=== PATIENT | female | born 1940 | race Caucasian/White ===

== ENCOUNTER 2021-04-04 14:38 | Inpatient (IN) | payer MEDICARE, OTHER ==
[~2021-04-04] VITALS: Ht 165.1 cm; Wt 64.0 kg
[2021-04-04] MEDS ORDERED: ONDANSETRON HCL 4 MG/2 ML VIAL IV ONE (22:30)
[2021-04-04] MEDS ORDERED: MORPHINE SULFATE 4 MG/ML SYR/VIAL IV ONE (22:30)
[2021-04-04 22:54] LABS: Basophils # (auto) 0 10 ^3/uL (0-0.2); Basophils % (auto) 0.2 % (0.0-2.0); Eosinophils # (auto) 0 10 ^3/uL (0-0.8); Eosinophils % (auto) 0.2 % (0.0-7.0); Hematocrit 35.3 % (36.0-46.0); Hemoglobin 11.9 g/dL (12.2-16.2); Lymphocytes % (auto) 10.2 % (10.0-50.0); Mean Corpuscular Hemoglobin 30.2 pg (28.0-32.0); Mean Corpuscular Hgb Conc. 33.6 g/dL (32.0-36.0); Mean Corpuscular Volume 89.8 fL (80.0-100.0); Monocytes # (auto) 0.7 10 ^3/uL (0-1.3); Monocytes % (auto) 6.8 % (0.0-12.0); Neutrophils # (auto) 8.4 10 ^3/uL (1.6-8.6); Neutrophils % (auto) 82.6 % (37.0-80.0); Red Blood Cells 3.93 10^6/uL (4.0-5.20); Red Cell Distribution Width 13.5 % (11.8-14.3); White Blood Cell 10.2 10^3/uL (4.4-10.8)
[2021-04-04 23:13] LABS: Albumin 3.2 g/dL (3.4-5.0); Calcium 8.1 mg/dL (8.5-10.1); INR 1.1 (0.9-1.15); Partial Thromboplastin Time 23.5 sec (23.6-33.0); Potassium 4.1 mmol/L (3.5-5.1)
[2021-04-04 23:16] LABS: BUN/Creatinine Ratio 26.7; Bilirubin, Total 1.2 mg/dL (0.2-1.0); Total Protein 5.6 g/dL (6.4-8.2)
[2021-04-05] MEDS ORDERED: MORPHINE SULFATE INJECTION 2 MG/ML SYRG IV PRN (00:15)
[2021-04-05] MEDS: SODIUM CHLORIDE 0.9% 1,000 ML IV SCH ×2 (00:15→16:31)
[2021-04-05] MEDS ORDERED: NITROGLYCERIN 0.4 MG SL TAB SL PRN (00:15)
[2021-04-05 02:44] VITALS: BP_SYST 132; BP_DIAS 44; BP_DIAS 74
[2021-04-05] MEDS: HYDROcodone-ACET 5/325MG TAB PO PRN ×3 (03:39→21:19)
[2021-04-05 05:00] VITALS: BP 124/68
[2021-04-05 07:10] LABS: Basophils # (auto) 0 10 ^3/uL (0-0.2); Basophils % (auto) 0.3 % (0.0-2.0); Eosinophils # (auto) 0 10 ^3/uL (0-0.8); Eosinophils % (auto) 0.1 % (0.0-7.0); Hematocrit 31.1 % (36.0-46.0); Hemoglobin 10.4 g/dL (12.2-16.2); Lymphocytes # (auto) 0.7 10 ^3/uL (0.4-5.4); Mean Corpuscular Hgb Conc. 33.5 g/dL (32.0-36.0); Mean Corpuscular Volume 89.6 fL (80.0-100.0); Monocytes # (auto) 0.7 10 ^3/uL (0-1.3); Monocytes % (auto) 8.1 % (0.0-12.0); Neutrophils # (auto) 7.4 10 ^3/uL (1.6-8.6); Neutrophils % (auto) 83.5 % (37.0-80.0); Red Blood Cells 3.48 10^6/uL (4.0-5.20); Red Cell Distribution Width 13.5 % (11.8-14.3); White Blood Cell 8.8 10^3/uL (4.4-10.8)
[2021-04-05 07:22] LABS: Potassium 4.4 mmol/L (3.5-5.1)
[2021-04-05 07:30] LABS: Albumin 2.9 g/dL (3.4-5.0); BUN/Creatinine Ratio 25.2; Bilirubin, Total 1.3 mg/dL (0.2-1.0); Calcium 7.9 mg/dL (8.5-10.1); Total Protein 5.2 g/dL (6.4-8.2)
[2021-04-05] MEDS: ONDANSETRON HCL 4 MG/2 ML VIAL IV PRN ×2 (09:49→18:45)
[2021-04-05] MEDS: MORPHINE SULFATE 4 MG/ML SYR/VIAL IV PRN ×2 (09:49→18:45)
[2021-04-05] MEDS: ZINC SULFATE 220mg CAP or TAB PO SCH (09:50)
[2021-04-05] MEDS: FAMOTIDINE (10MG/ML) 2ML VL IV SCH (09:50)
[2021-04-05] MEDS: ASCORBIC ACID 500 MG TAB PO SCH ×2 (09:50→21:18)
[2021-04-05] MEDS: MULTIPLE VITAMIN TAB PO SCH (09:50)
[2021-04-05] MEDS ORDERED: ENOXAPARIN SOD 40 MG/0.4 ML SYRINGE SC SCH (10:00)
[2021-04-05 13:00] VITALS: BP 100/56
[2021-04-05] MEDS: ALPRAZolam 0.5 MG TAB PO SCH ×2 (13:59→21:19)
[2021-04-06] VITALS (11 sets, daily range): BP systolic 104–150; BP diastolic 41–70
[2021-04-06] MEDS: ALPRAZolam 0.5 MG TAB PO SCH ×3 (06:00→19:44)
[2021-04-06] MEDS: SODIUM CHLORIDE 0.9% 1,000 ML IV SCH (09:16)
[2021-04-06] MEDS: ZINC SULFATE 220mg CAP or TAB PO SCH (09:21)
[2021-04-06] MEDS: MULTIPLE VITAMIN TAB PO SCH (09:21)
[2021-04-06] MEDS: ASCORBIC ACID 500 MG TAB PO SCH ×2 (09:21→19:44)
[2021-04-06] MEDS: FAMOTIDINE (10MG/ML) 2ML VL IV SCH (09:21)
[2021-04-06 10:04] LABS: Basophils # (auto) 0 10 ^3/uL (0-0.2); Basophils % (auto) 0.3 % (0.0-2.0); Eosinophils # (auto) 0 10 ^3/uL (0-0.8); Eosinophils % (auto) 0.7 % (0.0-7.0); Hemoglobin 9.6 g/dL (12.2-16.2); Lymphocytes % (auto) 14.4 % (10.0-50.0); Mean Corpuscular Hgb Conc. 33.1 g/dL (32.0-36.0); Mean Corpuscular Volume 90.7 fL (80.0-100.0); Monocytes # (auto) 0.6 10 ^3/uL (0-1.3); Monocytes % (auto) 8.8 % (0.0-12.0); Neutrophils # (auto) 5.2 10 ^3/uL (1.6-8.6); Neutrophils % (auto) 75.8 % (37.0-80.0); White Blood Cell 6.9 10^3/uL (4.4-10.8)
[2021-04-06 10:16] LABS: Albumin 2.8 g/dL (3.4-5.0); Calcium 7.9 mg/dL (8.5-10.1); Potassium 4.2 mmol/L (3.5-5.1)
[2021-04-06 10:19] LABS: BUN/Creatinine Ratio 25.8; Bilirubin, Total 0.9 mg/dL (0.2-1.0); Total Protein 5.2 g/dL (6.4-8.2)
[2021-04-06] MEDS ORDERED: MORPHINE SULF PF 2 MG/2 ML SYRG ONE (10:28)
[2021-04-06] MEDS ORDERED: KETAMINE HCL 10 ML ONE (10:28)
[2021-04-06] MEDS ORDERED: MIDAZOLAM HCL 2MG/2ML 2ml VIAL (1mg/ml) ONE (10:28)
[2021-04-06] MEDS ORDERED: fentaNYL CITRATE 100 MCG/2 ML VL ONE (10:28)
[2021-04-06] MEDS ORDERED: GLYCOPYRROLATE 0.2 MG/ML 1ML VIAL ONE (10:28)
[2021-04-06] MEDS ORDERED: BUPIVACAINE/DEXTROSE MPF 0.75% 2 ML AMP IT ONE (10:28)
[2021-04-06] MEDS ORDERED: ONDANSETRON HCL 4 MG/2 ML VIAL ONE (10:28)
[2021-04-06] MEDS ORDERED: LIDOCAINE 2% (LOCAL ANESTH.) PF 5ml SDV ONE (10:28)
[2021-04-06] MEDS ORDERED: PROPOFOL 10 MG/ML 20 ML IV ONE (10:29)
[2021-04-06] MEDS ORDERED: ceFAZolin 1GM/50ML 100 ML IV ONE (11:34)
[2021-04-06] MEDS ORDERED: BUPIVACAINE 0.25% INJ 50ML VIAL ONE (11:42)
[2021-04-06] MEDS ORDERED: EPINEPHrine HCL 1 MG/1 ML AMP ONE (12:56)
[2021-04-06] MEDS ORDERED: ceFAZolin 1GM/50ML 50 ML IV SCH (13:15)
[2021-04-06] MEDS ORDERED: ONDANSETRON HCL 4 MG/2 ML VIAL IV PRN ×2 (13:30)
[2021-04-06] MEDS ORDERED: diphenhdrAMINE HCL 50 MG/1 ML VL IV PRN (13:30)
[2021-04-06] MEDS ORDERED: NALOXONE HCL 0.4 MG/ML VIAL IV PRN ×2 (13:30)
[2021-04-06] MEDS ORDERED: DexAMETHasone SOD PHOS 10MG/1ML VIAL INJ IV PRN (13:30)
[2021-04-06] MEDS: SODIUM CHLOR 0.9% PF (SALINE LOCK) 10ML VIAL/SYR IV SCH ×2 (14:00→19:44)
[2021-04-06] MEDS: ceFAZolin 1GM/50ML 50 ML IV SCH (18:13)
[2021-04-06] MEDS: LACTATED RINGER'S 1,000 ML IV SCH ×2 (18:15→23:15)
[2021-04-06] MEDS: MORPHINE SULFATE 4 MG/ML SYR/VIAL IV PRN (19:46)
[2021-04-07] VITALS (20 sets, daily range): BP systolic 104–164; BP diastolic 38–74
[2021-04-07] MEDS: ceFAZolin 1GM/50ML 50 ML IV SCH ×2 (00:25→05:05)
[2021-04-07] MEDS: SODIUM CHLORIDE 0.9% 1,000 ML IV SCH ×2 (01:48→18:52)
[2021-04-07] MEDS: SODIUM CHLOR 0.9% PF (SALINE LOCK) 10ML VIAL/SYR IV SCH ×3 (04:52→21:09)
[2021-04-07] MEDS: MORPHINE SULFATE 4 MG/ML SYR/VIAL IV PRN ×3 (04:52→22:09)
[2021-04-07] MEDS: ALPRAZolam 0.5 MG TAB PO SCH ×3 (05:05→21:09)
[2021-04-07] MEDS: LACTATED RINGER'S 1,000 ML IV SCH (09:15)
[2021-04-07 09:27] LABS: Hematocrit 21.4 % (36.0-46.0)
[2021-04-07 09:29] LABS: Hemoglobin 7.2 g/dL (12.2-16.2)
[2021-04-07 09:40] LABS: Calcium 7.4 mg/dL (8.5-10.1); Potassium 4.1 mmol/L (3.5-5.1)
[2021-04-07 09:43] LABS: BUN/Creatinine Ratio 20.5; Bilirubin, Total 0.7 mg/dL (0.2-1.0)
[2021-04-07] MEDS: ZINC SULFATE 220mg CAP or TAB PO SCH (10:41)
[2021-04-07] MEDS: MULTIPLE VITAMIN TAB PO SCH (10:41)
[2021-04-07] MEDS: ASCORBIC ACID 500 MG TAB PO SCH ×2 (10:42→21:09)
[2021-04-07] MEDS: ENOXAPARIN SOD 30 MG/0.3 ML SYRINGE SC SCH (16:06)
[2021-04-07 18:12] LABS: Basophils # (auto) 0 10 ^3/uL (0-0.2); Basophils % (auto) 0.2 % (0.0-2.0); Eosinophils # (auto) 0 10 ^3/uL (0-0.8); Eosinophils % (auto) 0.3 % (0.0-7.0); Hemoglobin 7.6 g/dL (12.2-16.2); Lymphocytes # (auto) 0.6 10 ^3/uL (0.4-5.4); Lymphocytes % (auto) 6.9 % (10.0-50.0); Mean Corpuscular Hemoglobin 29.9 pg (28.0-32.0); Mean Corpuscular Hgb Conc. 33.1 g/dL (32.0-36.0); Mean Corpuscular Volume 90.4 fL (80.0-100.0); Monocytes # (auto) 0.6 10 ^3/uL (0-1.3); Neutrophils % (auto) 86.6 % (37.0-80.0); Red Blood Cells 2.55 10^6/uL (4.0-5.20); Red Cell Distribution Width 13.3 % (11.8-14.3); White Blood Cell 9.2 10^3/uL (4.4-10.8)
[2021-04-08 05:00] VITALS: BP 141/52
[2021-04-08] MEDS: SODIUM CHLOR 0.9% PF (SALINE LOCK) 10ML VIAL/SYR IV SCH ×3 (05:37→22:24)
[2021-04-08] MEDS: ALPRAZolam 0.5 MG TAB PO SCH ×2 (05:37→14:05)
[2021-04-08] MEDS: MORPHINE SULFATE 4 MG/ML SYR/VIAL IV PRN ×3 (05:38→19:53)
[2021-04-08 07:45] LABS: Hematocrit 21.4 % (36.0-46.0); Hemoglobin 7.1 g/dL (12.2-16.2)
[2021-04-08 08:20] VITALS: BP 118/88
[2021-04-08 10:00] VITALS: BP 118/88
[2021-04-08] MEDS: ASCORBIC ACID 500 MG TAB PO SCH (10:29)
[2021-04-08] MEDS: ZINC SULFATE 220mg CAP or TAB PO SCH (10:29)
[2021-04-08] MEDS: MULTIPLE VITAMIN TAB PO SCH (10:29)
[2021-04-08] MEDS: SODIUM CHLORIDE 0.9% 1,000 ML IV SCH (11:08)
[2021-04-08] MEDS: ACETAMINOPHEN 325 MG TAB PO PRN (11:12)
[2021-04-08 14:00] VITALS: BP 136/74
[2021-04-08] MEDS: ENOXAPARIN SOD 30 MG/0.3 ML SYRINGE SC SCH (14:05)
[2021-04-08 17:00] VITALS: BP 130/54
[2021-04-08] MEDS ORDERED: POLYETHYLENE GLYCOL 17 GM PWDR PO ONE (17:15)
[2021-04-08 22:00] VITALS: BP 132/60
[2021-04-09] VITALS (8 sets, daily range): BP systolic 116–146; BP diastolic 47–93
[2021-04-09] MEDS: MORPHINE SULFATE 4 MG/ML SYR/VIAL IV PRN ×2 (04:06→12:51)
[2021-04-09] MEDS: SODIUM CHLOR 0.9% PF (SALINE LOCK) 10ML VIAL/SYR IV SCH ×3 (05:51→22:10)
[2021-04-09 09:39] LABS: Basophils # (auto) 0 10 ^3/uL (0-0.2); Eosinophils # (auto) 0.1 10 ^3/uL (0-0.8); Lymphocytes # (auto) 0.6 10 ^3/uL (0.4-5.4); Mean Corpuscular Hemoglobin 29.6 pg (28.0-32.0); Monocytes # (auto) 0.4 10 ^3/uL (0-1.3); Neutrophils % (auto) 84.9 % (37.0-80.0); Red Blood Cells 2.32 10^6/uL (4.0-5.20)
[2021-04-09 09:43] LABS: Basophils % (auto) 0.2 % (0.0-2.0); Eosinophils % (auto) 1.4 % (0.0-7.0); Hematocrit 20.7 % (36.0-46.0); Lymphocytes % (auto) 8.2 % (10.0-50.0); Mean Corpuscular Hgb Conc. 33.1 g/dL (32.0-36.0); Mean Corpuscular Volume 89.3 fL (80.0-100.0); Monocytes % (auto) 5.3 % (0.0-12.0); Neutrophils # (auto) 5.9 10 ^3/uL (1.6-8.6); Red Cell Distribution Width 13.3 % (11.8-14.3)
[2021-04-09 09:54] LABS: Hemoglobin 6.9 g/dL (12.2-16.2)
[2021-04-09 09:56] LABS: % Iron Saturation 10.2 % (15-50); Albumin 1.9 g/dL (3.4-5.0); Calcium 7.8 mg/dL (8.5-10.1); Potassium 3.5 mmol/L (3.5-5.1)
[2021-04-09 10:00] LABS: BUN/Creatinine Ratio 28.6; Bilirubin, Total 1.3 mg/dL (0.2-1.0); Total Protein 4.3 g/dL (6.4-8.2)
[2021-04-09 10:10] LABS: Urine Bacteria FEW /hpf (None Seen); Urine Blood Negative /uL (Negative); Urine Specific Gravity 1.011 (1.001-1.035); Urine WBC 2 /hpf (0 - 5)
[2021-04-09 10:14] LABS: Thyroid Stimulating Hormone 2.84 uIU/mL (0.358-3.74)
[2021-04-09 10:15] LABS: Folate (Folic Acid) 20.24 ng/mL (5.38-24)
[2021-04-09] MEDS: MULTIPLE VITAMIN TAB PO SCH (11:33)
[2021-04-09] MEDS: POLYETHYLENE GLYCOL 17 GM PWDR PO SCH (11:33)
[2021-04-09] MEDS: ENOXAPARIN SOD 30 MG/0.3 ML SYRINGE SC SCH (11:58)
[2021-04-09] MEDS: HYDROcodone-ACET 5/325MG TAB PO PRN (18:11)
[2021-04-09 22:05] LABS: Basophils # (auto) 0 10 ^3/uL (0-0.2); Eosinophils # (auto) 0.1 10 ^3/uL (0-0.8); Eosinophils % (auto) 1.3 % (0.0-7.0); Monocytes # (auto) 0.5 10 ^3/uL (0-1.3); Red Cell Distribution Width 15.5 % (11.8-14.3)
[2021-04-09 22:07] LABS: Basophils % (auto) 0.2 % (0.0-2.0); Hematocrit 24.5 % (36.0-46.0); Hemoglobin 8.2 g/dL (12.2-16.2); Lymphocytes # (auto) 0.7 10 ^3/uL (0.4-5.4); Lymphocytes % (auto) 10.2 % (10.0-50.0); Mean Corpuscular Hemoglobin 28.8 pg (28.0-32.0); Mean Corpuscular Hgb Conc. 33.4 g/dL (32.0-36.0); Mean Corpuscular Volume 86.1 fL (80.0-100.0); Monocytes % (auto) 6.8 % (0.0-12.0); Neutrophils # (auto) 5.8 10 ^3/uL (1.6-8.6); Neutrophils % (auto) 81.5 % (37.0-80.0); Nucleated Red Blood Cells % 0.1 %; Red Blood Cells 2.84 10^6/uL (4.0-5.20); White Blood Cell 7.1 10^3/uL (4.4-10.8)
[2021-04-10] MEDS: MORPHINE SULFATE 4 MG/ML SYR/VIAL IV PRN (01:40)
[2021-04-10 05:00] VITALS: BP 172/70
[2021-04-10] MEDS: SODIUM CHLOR 0.9% PF (SALINE LOCK) 10ML VIAL/SYR IV SCH ×3 (06:12→21:12)
[2021-04-10 09:26] LABS: Basophils # (auto) 0 10 ^3/uL (0-0.2); Eosinophils # (auto) 0.1 10 ^3/uL (0-0.8); Hemoglobin 8.1 g/dL (12.2-16.2); Lymphocytes # (auto) 0.7 10 ^3/uL (0.4-5.4); Mean Corpuscular Hemoglobin 28.2 pg (28.0-32.0); Mean Corpuscular Hgb Conc. 32.5 g/dL (32.0-36.0); Mean Corpuscular Volume 86.6 fL (80.0-100.0); Monocytes # (auto) 0.4 10 ^3/uL (0-1.3); Red Blood Cells 2.89 10^6/uL (4.0-5.20)
[2021-04-10 09:27] VITALS: BP 175/86
[2021-04-10 09:28] LABS: Basophils % (auto) 0.2 % (0.0-2.0); Eosinophils % (auto) 1.9 % (0.0-7.0); Lymphocytes % (auto) 10.9 % (10.0-50.0); Monocytes % (auto) 6.7 % (0.0-12.0); Neutrophils % (auto) 80.3 % (37.0-80.0); Red Cell Distribution Width 15.6 % (11.8-14.3); White Blood Cell 6.2 10^3/uL (4.4-10.8)
[2021-04-10] MEDS: POLYETHYLENE GLYCOL 17 GM PWDR PO SCH (09:40)
[2021-04-10] MEDS: MULTIPLE VITAMIN TAB PO SCH (09:40)
[2021-04-10] MEDS: DOCUSATE SOD 100 MG CAP PO PRN (09:40)
[2021-04-10] MEDS: HYDROcodone-ACET 5/325MG TAB PO PRN ×2 (09:41→21:12)
[2021-04-10 11:00] VITALS: BP 156/67
[2021-04-10] MEDS: ENOXAPARIN SOD 30 MG/0.3 ML SYRINGE SC SCH (11:56)
[2021-04-10 16:53] VITALS: BP 155/76
[2021-04-11] MEDS: MORPHINE SULFATE 4 MG/ML SYR/VIAL IV PRN ×2 (04:25→12:56)
[2021-04-11 06:05] VITALS: BP 143/66
[2021-04-11] MEDS: SODIUM CHLOR 0.9% PF (SALINE LOCK) 10ML VIAL/SYR IV SCH ×3 (06:29→21:27)
[2021-04-11 08:00] VITALS: BP 154/79
[2021-04-11 08:57] VITALS: BP 133/74
[2021-04-11] MEDS: MULTIPLE VITAMIN TAB PO SCH (10:16)
[2021-04-11] MEDS: POLYETHYLENE GLYCOL 17 GM PWDR PO SCH (10:17)
[2021-04-11 11:00] LABS: Hemoglobin 8.2 g/dL (12.2-16.2)
[2021-04-11 12:00] VITALS: BP 168/79
[2021-04-11] MEDS: ENOXAPARIN SOD 30 MG/0.3 ML SYRINGE SC SCH (12:54)
[2021-04-11 16:42] VITALS: BP 167/78
[2021-04-11] MEDS: Ensure HIGH Protein Vanilla 8oz Bottle PO SCH (18:00)
[2021-04-11] MEDS: HYDROcodone-ACET 5/325MG TAB PO PRN ×2 (18:35→23:06)
[2021-04-11] MEDS: HALOPERIDOL LACTATE 5 MG/ML INJ VIAL IM PRN (20:40)
[2021-04-11] MEDS: QUEtiapine FUMARATE 25 MG TAB PO SCH (21:27)
[2021-04-12 05:41] VITALS: BP 149/71
[2021-04-12] MEDS: SODIUM CHLOR 0.9% PF (SALINE LOCK) 10ML VIAL/SYR IV SCH ×3 (05:58→21:20)
[2021-04-12 07:51] LABS: Hematocrit 23.9 % (36.0-46.0); Hemoglobin 7.9 g/dL (12.2-16.2)
[2021-04-12] MEDS: Ensure HIGH Protein Vanilla 8oz Bottle PO SCH ×2 (08:00→17:00)
[2021-04-12 08:51] VITALS: BP 126/61
[2021-04-12] MEDS: POLYETHYLENE GLYCOL 17 GM PWDR PO SCH (10:37)
[2021-04-12] MEDS: DOCUSATE SOD 100 MG CAP PO PRN (10:37)
[2021-04-12] MEDS: MULTIPLE VITAMIN TAB PO SCH (10:37)
[2021-04-12 12:50] VITALS: BP 161/75
[2021-04-12] MEDS: ENOXAPARIN SOD 30 MG/0.3 ML SYRINGE SC SCH (13:12)
[2021-04-12 18:11] VITALS: BP 113/61
[2021-04-12 20:00] VITALS: BP 154/68
[2021-04-12] MEDS: QUEtiapine FUMARATE 25 MG TAB PO SCH (21:20)
[2021-04-12 22:00] VITALS: BP 154/68
[2021-04-13] MEDS: HALOPERIDOL LACTATE 5 MG/ML INJ VIAL IM PRN (02:05)
[2021-04-13 05:00] VITALS: BP 151/70
[2021-04-13] MEDS: SODIUM CHLOR 0.9% PF (SALINE LOCK) 10ML VIAL/SYR IV SCH ×2 (05:33→14:00)
[2021-04-13 05:58] LABS: Hematocrit 24.5 % (36.0-46.0); Hemoglobin 8.2 g/dL (12.2-16.2)
[2021-04-13 08:37] VITALS: BP 125/68
[2021-04-13] MEDS: MULTIPLE VITAMIN TAB PO SCH (09:22)
[2021-04-13] MEDS: Ensure HIGH Protein Vanilla 8oz Bottle PO SCH ×2 (09:22→17:43)
[2021-04-13] MEDS: POLYETHYLENE GLYCOL 17 GM PWDR PO SCH (09:22)
[2021-04-13] MEDS: ACETAMINOPHEN 325 MG TAB PO PRN (09:23)
[2021-04-13 13:00] VITALS: BP 126/90
[2021-04-13] MEDS: ENOXAPARIN SOD 30 MG/0.3 ML SYRINGE SC SCH ×2 (13:15→13:53)
[2021-04-13] MEDS: HYDROcodone-ACET 5/325MG TAB PO PRN ×2 (13:53→17:34)
[2021-04-13 17:00] VITALS: BP 144/65
== END 2021-04-13 19:09 | disposition home health service (06) | DRG 480 ==
LOC: ER 14:38 → EDBD 14:38 → OVERFLOW 04-05 00:20 → WEST WING 04-05 02:08
PROVIDERS: ADMIT Nurse Practitioner Family; ATTEND Internal Medicine
PROC: 0QS736Z Reposition Left Upper Femur with Intramedullary Internal Fixation Device, Percutaneous Approach (ICD-10-PCS; 2021-04-06)
PROC: 30233N1 Transfusion of Nonautologous Red Blood Cells into Peripheral Vein, Percutaneous Approach (ICD-10-PCS; principal; 2021-04-09)
DX: S72.142A Displaced intertrochanteric fracture of left femur, initial encounter for closed fracture (principal); G92.8 Other toxic encephalopathy; E44.1 Mild protein-calorie malnutrition; W10.9XXA Fall (on) (from) unspecified stairs and steps, initial encounter; I10 Essential (primary) hypertension; F03.90 Unspecified dementia, unspecified severity, without behavioral disturbance, psychotic disturbance, mood disturbance, and anxiety; Z20.822 Contact with and (suspected) exposure to COVID-19; D50.9 Iron deficiency anemia, unspecified; M25.40 Effusion, unspecified joint; Y93.89 Activity, other specified; Y92.098 Other place in other non-institutional residence as the place of occurrence of the external cause; Y99.8 Other external cause status; Z68.23 Body mass index [BMI] 23.0-23.9, adult
CPT/HCPCS: 36415; 70450; 71045; 72170; 73502; 76000; 80053; 81001; 82607; 82746; 83540; 83550; 83615; 84443; 85014; 85018; 85025; 85045; 85610; 85730; 86850; 86900; 86901; 86920; 87086; 87205; 87426; 93005; 96374; 96375; 97110; 97116; 97163; 97530; G0378; J0171; J0690; J2001; J2250; J2405; J2704; J3490

== ENCOUNTER 2022-03-01 11:47 | Inpatient (IN) | payer MEDICARE, BC ==
[~2022-03-01] VITALS: Ht 167.6 cm; Wt 55.0 kg
[2022-03-01 13:07] LABS: Basophils # (auto) 0 10 ^3/uL (0-0.2); Basophils % (auto) 0.3 % (0.0-2.0); Eosinophils # (auto) 0 10 ^3/uL (0-0.8); Eosinophils % (auto) 0.2 % (0.0-7.0); Hematocrit 39.7 % (36.0-46.0); Hemoglobin 13.1 g/dL (12.2-16.2); Lymphocytes % (auto) 9.8 % (10.0-50.0); Mean Corpuscular Hemoglobin 29.4 pg (28.0-32.0); Monocytes # (auto) 0.5 10 ^3/uL (0-1.3); Monocytes % (auto) 5.4 % (0.0-12.0); Neutrophils # (auto) 8.5 10 ^3/uL (1.6-8.6); Neutrophils % (auto) 84.3 % (37.0-80.0); Red Blood Cells 4.46 10^6/uL (4.0-5.20); Red Cell Distribution Width 13.1 % (11.8-14.3); White Blood Cell 10.1 10^3/uL (4.4-10.8)
[2022-03-01 14:06] LABS: Albumin 3.3 g/dL (3.4-5.0); BUN/Creatinine Ratio 25.2; Bilirubin, Total 0.7 mg/dL (0.2-1.0); Calcium 8.9 mg/dL (8.5-10.1); Potassium 4.1 mmol/L (3.5-5.1); Total Protein 6.4 g/dL (6.4-8.2)
[2022-03-01] MEDS ORDERED: cefTRIAXone 1GM/50ML D5W 50 ML IV ONE (16:45)
[2022-03-01] MEDS ORDERED: ONDANSETRON HCL 4 MG/2 ML VIAL IV ONE (16:45)
[2022-03-01] MEDS ORDERED: MORPHINE SULFATE 4 MG/ML SYR/VIAL IV ONE (16:45)
[2022-03-01] MEDS ORDERED: metroNIDAZOLE 500MG/100ML 100 ML IV ONE (16:45)
[2022-03-01 17:55] LABS: Urine Amorphous Crystal FEW /hpf (None Seen); Urine Bacteria FEW /hpf (None Seen); Urine Blood TRACE /uL (Negative); Urine Hyaline Cast FEW /lpf (0 - 2); Urine Mucus FEW (None Seen); Urine Specific Gravity 1.014 (1.001-1.035); Urine WBC 93 /hpf (0 - 5); Urine WBC Clumps PRESENT /hpf (None Seen)
[2022-03-01] MEDS ORDERED: ONDANSETRON HCL 4 MG/2 ML VIAL IV PRN (20:45)
[2022-03-01] MEDS ORDERED: HYDROcodone-ACET 5/325MG TAB PO PRN (20:45)
[2022-03-01] MEDS ORDERED: ACETAMINOPHEN 325 MG TAB PO PRN (20:45)
[2022-03-01] MEDS: cefTRIAXone 1GM/50ML D5W 50 ML IV SCH (20:54)
[2022-03-01] MEDS: metroNIDAZOLE 500MG/100ML 100 ML IV SCH (22:00)
[2022-03-02] VITALS (9 sets, daily range): BP systolic 111–191; BP diastolic 54–87
[2022-03-02] MEDS ORDERED: hydrALAZINE HCL 20 MG/ML VL IV ONE (06:30)
[2022-03-02] MEDS: metroNIDAZOLE 500MG/100ML 100 ML IV SCH ×3 (06:32→22:51)
[2022-03-02 06:40] LABS: Basophils # (auto) 0 10 ^3/uL (0-0.2); Basophils % (auto) 0.4 % (0.0-2.0); Eosinophils # (auto) 0 10 ^3/uL (0-0.8); Eosinophils % (auto) 0.6 % (0.0-7.0); Hematocrit 37.8 % (36.0-46.0); Hemoglobin 12.6 g/dL (12.2-16.2); Lymphocytes % (auto) 13.3 % (10.0-50.0); Mean Corpuscular Hemoglobin 29.8 pg (28.0-32.0); Mean Corpuscular Hgb Conc. 33.5 g/dL (32.0-36.0); Mean Corpuscular Volume 89.2 fL (80.0-100.0); Monocytes # (auto) 0.5 10 ^3/uL (0-1.3); Monocytes % (auto) 6.5 % (0.0-12.0); Neutrophils # (auto) 5.9 10 ^3/uL (1.6-8.6); Neutrophils % (auto) 79.2 % (37.0-80.0); Red Blood Cells 4.23 10^6/uL (4.0-5.20); Red Cell Distribution Width 12.7 % (11.8-14.3); White Blood Cell 7.5 10^3/uL (4.4-10.8)
[2022-03-02] MEDS ORDERED: [UNRECOGNIZED DRUG - CODE] PO (07:07)
[2022-03-02] MEDS ORDERED: OXY5T GT (07:07)
[2022-03-02 07:11] LABS: Potassium 4.5 mmol/L (3.5-5.1)
[2022-03-02 07:19] LABS: BUN/Creatinine Ratio 26.7; Bilirubin, Total 0.8 mg/dL (0.2-1.0); Calcium 8.6 mg/dL (8.5-10.1); Total Protein 5.8 g/dL (6.4-8.2)
[2022-03-02] MEDS: PANTOPRAZOLE 40 MG TAB PO SCH (09:42)
[2022-03-02] MEDS: cefTRIAXone 1GM/50ML D5W 50 ML IV SCH (10:17)
[2022-03-02] MEDS ORDERED: MORPHINE SULFATE INJ 2 MG/ml SYRG IV PRN (12:30)
[2022-03-02 18:50] LABS: Urine Bacteria NONE SEEN /hpf (None Seen); Urine Blood Negative /uL (Negative); Urine WBC 5 /hpf (0 - 5)
[2022-03-02] MEDS: DOCUSATE SOD 100 MG CAP PO SCH (22:52)
[2022-03-03] MEDS ORDERED: hydrALAZINE HCL 20 MG/ML VL IV ONE (01:00)
[2022-03-03 02:00] VITALS: BP 135/53
[2022-03-03 05:37] VITALS: BP 116/62
[2022-03-03] MEDS: metroNIDAZOLE 500MG/100ML 100 ML IV SCH ×3 (06:00→22:50)
[2022-03-03 08:00] VITALS: BP 168/63
[2022-03-03] MEDS: cefTRIAXone 1GM/50ML D5W 50 ML IV SCH (09:23)
[2022-03-03] MEDS: PANTOPRAZOLE 40 MG TAB PO SCH (09:23)
[2022-03-03] MEDS: DOCUSATE SOD 100 MG CAP PO SCH ×2 (09:24→22:51)
[2022-03-03] MEDS ORDERED: hydrALAZINE HCL 20 MG/ML VL IV PRN (11:45)
[2022-03-03] MEDS ORDERED: LIDOCAINE 5% TOPICAL PATCH TOP ONE (11:45)
[2022-03-03] MEDS ORDERED: LISINOPRIL 10 MG TAB PO ONE (11:45)
[2022-03-03] MEDS ORDERED: CHOLECALCIFEROL (VITD3) 2,000 UNIT CAP/TAB PO ONE (11:45)
[2022-03-03 13:00] VITALS: BP 151/64
[2022-03-03] MEDS ORDERED: HYDROcodone-ACET 5/325MG TAB PO PRN (13:45)
[2022-03-03 16:49] VITALS: BP 101/48
[2022-03-03 20:15] VITALS: BP 162/85
[2022-03-04] VITALS (7 sets, daily range): BP systolic 129–168; BP diastolic 64–79
[2022-03-04] MEDS: metroNIDAZOLE 500MG/100ML 100 ML IV SCH (05:59)
[2022-03-04] MEDS ORDERED: CHOLECALCIFEROL (VITD3) 2,000 UNIT CAP/TAB PO SCH (10:00)
[2022-03-04] MEDS: LIDOCAINE 5% TOPICAL PATCH TOP SCH (10:00)
[2022-03-04] MEDS: LISINOPRIL 10 MG TAB PO SCH (10:03)
[2022-03-04] MEDS: DOCUSATE SOD 100 MG CAP PO SCH ×2 (10:03→22:19)
[2022-03-04] MEDS: PANTOPRAZOLE 40 MG TAB PO SCH (10:03)
[2022-03-04] MEDS: cefTRIAXone 1GM/50ML D5W 50 ML IV SCH (10:05)
[2022-03-04] MEDS ORDERED: LACTULOSE 20Gm/30ML SOLN PO ONE (12:30)
[2022-03-04] MEDS: metroNIDAZOLE 500 MG TAB PO SCH ×2 (15:11→22:19)
[2022-03-05] MEDS: metroNIDAZOLE 500 MG TAB PO SCH ×2 (06:08→14:34)
[2022-03-05 09:00] VITALS: BP 136/63
[2022-03-05] MEDS: cefTRIAXone 1GM/50ML D5W 50 ML IV SCH (09:34)
[2022-03-05] MEDS: DOCUSATE SOD 100 MG CAP PO SCH (10:20)
[2022-03-05] MEDS: LIDOCAINE 5% TOPICAL PATCH TOP SCH (10:22)
[2022-03-05] MEDS: LISINOPRIL 10 MG TAB PO SCH (10:22)
[2022-03-05] MEDS ORDERED: LISI-716 PO (11:45)
[2022-03-05] MEDS ORDERED: LEVO500T31 PO (11:45)
[2022-03-05] MEDS ORDERED: MET500T PO (11:45)
[2022-03-05 13:37] VITALS: BP 136/63
== END 2022-03-05 15:30 | disposition home health service (06) | DRG 391 ==
LOC: ER 11:47 → OVERFLOW 20:48 → WEST WING 22:18
PROVIDERS: ADMIT Nurse Practitioner; ATTEND Internal Medicine
DX: K57.32 Diverticulitis of large intestine without perforation or abscess without bleeding (principal); G92.8 Other toxic encephalopathy; N17.9 Acute kidney failure, unspecified; N39.0 Urinary tract infection, site not specified; Z68.1 Body mass index [BMI] 19.9 or less, adult; M48.56XA Collapsed vertebra, not elsewhere classified, lumbar region, initial encounter for fracture; Z20.822 Contact with and (suspected) exposure to COVID-19; Z96.642 Presence of left artificial hip joint; M48.061 Spinal stenosis, lumbar region without neurogenic claudication; R63.4 Abnormal weight loss; B96.20 Unspecified Escherichia coli [E. coli] as the cause of diseases classified elsewhere; I10 Essential (primary) hypertension; K59.00 Constipation, unspecified; Z79.899 Other long term (current) drug therapy; F03.90 Unspecified dementia, unspecified severity, without behavioral disturbance, psychotic disturbance, mood disturbance, and anxiety
CPT/HCPCS: 36415; 71045; 72131; 74176; 80053; 81001; 82306; 83605; 84484; 85025; 87040; 87086; 87088; 87186; 87426; 96365; 96367; 96375; 97110; 97116; 97163; 97530; G0378; J0696; J2405; J3490

== ENCOUNTER 2022-09-01 21:29 | Inpatient (IN) | payer MEDICARE, BC ==
[~2022-09-01] VITALS: Ht 167.6 cm; Wt 59.4 kg
[~2022-09-01 21:29] MED LIST: LEVO500T31 PO; LISI-716 PO; MET500T PO; OXY5T GT; [UNRECOGNIZED DRUG - CODE] PO
[2022-09-01] MEDS ORDERED: HYDROmorphone HCL 2 MG/ML VL/or syr IV ONE (22:45)
[2022-09-01] MEDS ORDERED: SODIUM CHLORIDE 0.9% 500 ML IV ONE (22:45)
[2022-09-01] MEDS ORDERED: ONDANSETRON HCL 4 MG/2 ML VIAL IV ONE (22:45)
[2022-09-01 23:03] LABS: Basophils # (auto) 0 10 ^3/uL (0-0.2); Basophils % (auto) 0.3 % (0.0-2.0); Eosinophils # (auto) 0 10 ^3/uL (0-0.8); Eosinophils % (auto) 0.2 % (0.0-7.0); Hematocrit 34.2 % (36.0-46.0); Hemoglobin 11.3 g/dL (12.2-16.2); Lymphocytes # (auto) 0.6 10 ^3/uL (0.4-5.4); Mean Corpuscular Hemoglobin 29.3 pg (28.0-32.0); Mean Corpuscular Volume 88.7 fL (80.0-100.0); Monocytes # (auto) 0.4 10 ^3/uL (0-1.3); Monocytes % (auto) 4.7 % (0.0-12.0); Neutrophils % (auto) 87.8 % (37.0-80.0); Nucleated Red Blood Cells % 0.1 %; Red Blood Cells 3.86 10^6/uL (4.0-5.20); Red Cell Distribution Width 13.8 % (11.8-14.3); White Blood Cell 9.1 10^3/uL (4.4-10.8)
[2022-09-01 23:35] LABS: Albumin 3.3 g/dL (3.4-5.0); Calcium 8.6 mg/dL (8.5-10.1); Potassium 3.8 mmol/L (3.5-5.1)
[2022-09-01 23:38] LABS: BUN/Creatinine Ratio 36.8 (10.0-20.0); Bilirubin, Total 0.5 mg/dL (0.2-1.0); Total Protein 5.7 g/dL (6.4-8.2)
[2022-09-02] MEDS ORDERED: ONDA-144 PO ×2 (03:44)
[2022-09-02] MEDS ORDERED: HYDR-4902 PO ×2 (03:44)
[2022-09-02 07:11] LABS: Urine Bacteria NONE SEEN /hpf (None Seen); Urine Blood Negative /uL (Negative); Urine Hyaline Cast FEW /lpf (0 - 2); Urine WBC 1 /hpf (0 - 5)
[2022-09-02] MEDS ORDERED: HYDROcodone-ACET 5/325MG TAB PO PRN (07:30)
[2022-09-02] MEDS ORDERED: ACETAMINOPHEN 325 MG TAB PO PRN (07:30)
[2022-09-02] MEDS: ONDANSETRON HCL 4 MG/2 ML VIAL IV PRN ×2 (08:20→13:25)
[2022-09-02] MEDS: MORPHINE SULFATE INJ 2 MG/ml SYRG IV PRN ×2 (08:20→13:25)
[2022-09-02 08:26] LABS: INR 1.08 (0.9-1.15); Partial Thromboplastin Time 25.6 sec (24.6-33.4)
[2022-09-02] MEDS ORDERED: PANTOPRAZOLE 40 MG TAB PO SCH (10:00)
[2022-09-02] MEDS ORDERED: TEMAZEPAM 15 MG CAP PO ONE (19:15)
[2022-09-02] MEDS ORDERED: LORazepam 2MG/ML-1ML VIAL IV ONE (19:15)
[2022-09-02 22:08] VITALS: BP 150/52
[2022-09-03] VITALS (17 sets, daily range): BP systolic 99–157; BP diastolic 51–102
[2022-09-03 06:56] LABS: Basophils # (auto) 0 10 ^3/uL (0-0.2); Basophils % (auto) 0.5 % (0.0-2.0); Eosinophils # (auto) 0 10 ^3/uL (0-0.8); Eosinophils % (auto) 0.6 % (0.0-7.0); Hematocrit 27.4 % (36.0-46.0); Hemoglobin 9.3 g/dL (12.2-16.2); Lymphocytes # (auto) 0.8 10 ^3/uL (0.4-5.4); Mean Corpuscular Hemoglobin 30.4 pg (28.0-32.0); Mean Corpuscular Hgb Conc. 34.1 g/dL (32.0-36.0); Mean Corpuscular Volume 89.4 fL (80.0-100.0); Monocytes # (auto) 0.7 10 ^3/uL (0-1.3); Monocytes % (auto) 9.5 % (0.0-12.0); Neutrophils # (auto) 5.4 10 ^3/uL (1.6-8.6); Neutrophils % (auto) 78.4 % (37.0-80.0); Nucleated Red Blood Cells % 0.1 %; Red Blood Cells 3.07 10^6/uL (4.0-5.20); Red Cell Distribution Width 13.6 % (11.8-14.3); White Blood Cell 6.8 10^3/uL (4.4-10.8)
[2022-09-03 07:05] LABS: Albumin 2.7 g/dL (3.4-5.0); Calcium 8.6 mg/dL (8.5-10.1); Potassium 4.1 mmol/L (3.5-5.1)
[2022-09-03 07:07] LABS: Bilirubin, Total 1.5 mg/dL (0.2-1.0); Total Protein 5.5 g/dL (6.4-8.2)
[2022-09-03] MEDS: PANTOPRAZOLE 40 MG/10 ML VIAL INJ IV SCH (09:45)
[2022-09-03] MEDS ORDERED: BUPIVACAINE 0.25% INJ 50ML VIAL ONE (10:42)
[2022-09-03] MEDS ORDERED: BUPIVACAINE 0.5% P/F INJ 10 ML VIAL ONE (11:14)
[2022-09-03] MEDS ORDERED: fentaNYL CITRATE 100 MCG/2 ML VL ONE (11:26)
[2022-09-03] MEDS ORDERED: ONDANSETRON HCL 4 MG/2 ML VIAL ONE (11:26)
[2022-09-03] MEDS ORDERED: GLYCOPYRROLATE 0.2 MG/ML 1ML VIAL ONE (11:26)
[2022-09-03] MEDS ORDERED: KETAMINE HCL 10 ML ONE (11:26)
[2022-09-03] MEDS ORDERED: ePHEDrine SULFATE 50 MG/ML AMP ONE (11:26)
[2022-09-03] MEDS ORDERED: PROPOFOL 10 MG/ML 20 ML IV ONE (11:26)
[2022-09-03] MEDS ORDERED: MORPHINE SULF PF 5 MG/10 ML VIAL ONE (11:27)
[2022-09-03] MEDS ORDERED: MIDAZOLAM HCL 2MG/2ML 2ml VIAL (1mg/ml) ONE (11:32)
[2022-09-03] MEDS ORDERED: ceFAZolin 1GM VL ONE (12:22)
[2022-09-03] MEDS ORDERED: ONDANSETRON HCL 4 MG/2 ML VIAL IV PRN (13:45)
[2022-09-03] MEDS ORDERED: DexAMETHasone SOD PHOS 10MG/1ML VIAL INJ IV PRN (13:45)
[2022-09-03] MEDS ORDERED: diphenhdrAMINE HCL 50 MG/1 ML VL IV PRN (13:45)
[2022-09-03] MEDS ORDERED: NALOXONE HCL 0.4 MG/ML VIAL IV PRN (13:45)
[2022-09-03] MEDS: D5W/SOD CHL 0.45% 1,000 ML IV SCH (15:08)
[2022-09-03] MEDS: FERROUS SULFATE 325mg EC TAB PO SCH (17:31)
[2022-09-03] MEDS: ceFAZolin 1GM/50ML 50 ML IV SCH (20:29)
[2022-09-04] VITALS (18 sets, daily range): BP systolic 98–142; BP diastolic 44–92
[2022-09-04] MEDS: LORazepam 2MG/ML-1ML VIAL IV PRN ×2 (00:10→20:18)
[2022-09-04] MEDS: D5W/SOD CHL 0.45% 1,000 ML IV SCH ×2 (00:20→13:40)
[2022-09-04 06:39] LABS: Basophils # (auto) 0 10 ^3/uL (0-0.2); Eosinophils # (auto) 0 10 ^3/uL (0-0.8); Hematocrit 23.5 % (36.0-46.0); Hemoglobin 7.8 g/dL (12.2-16.2); Monocytes # (auto) 1.2 10 ^3/uL (0-1.3); Neutrophils % (auto) 88.1 % (37.0-80.0); Red Blood Cells 2.65 10^6/uL (4.0-5.20)
[2022-09-04 06:41] LABS: Lymphocytes # (auto) 0.6 10 ^3/uL (0.4-5.4); Lymphocytes % (auto) 4.1 % (10.0-50.0); Mean Corpuscular Hemoglobin 29.4 pg (28.0-32.0); Mean Corpuscular Hgb Conc. 33.1 g/dL (32.0-36.0); Mean Corpuscular Volume 88.7 fL (80.0-100.0); Monocytes % (auto) 7.8 % (0.0-12.0); Red Cell Distribution Width 13.3 % (11.8-14.3); White Blood Cell 14.8 10^3/uL (4.4-10.8)
[2022-09-04 06:58] LABS: BUN/Creatinine Ratio 22.2 (10.0-20.0); Calcium 8.3 mg/dL (8.5-10.1); Potassium 4.2 mmol/L (3.5-5.1)
[2022-09-04] MEDS: ceFAZolin 1GM/50ML 50 ML IV SCH ×2 (07:17→13:04)
[2022-09-04] MEDS: FERROUS SULFATE 325mg EC TAB PO SCH ×2 (08:00→17:51)
[2022-09-04] MEDS: Ensure HIGH Protein Chocolate 8oz Bottle PO SCH ×2 (08:00→18:52)
[2022-09-04] MEDS: PANTOPRAZOLE 40 MG/10 ML VIAL INJ IV SCH (09:52)
[2022-09-04] MEDS: MULTIPLE VITAMIN TAB PO SCH (10:29)
[2022-09-04] MEDS: KETOROLAC TROMETH 30 MG/ML 1ML VIAL IV PRN (10:30)
[2022-09-05] MEDS: D5W/SOD CHL 0.45% 1,000 ML IV SCH ×2 (03:00→16:20)
[2022-09-05 05:00] VITALS: BP 121/57
[2022-09-05 05:58] LABS: Basophils # (auto) 0 10 ^3/uL (0-0.2); Basophils % (auto) 0.1 % (0.0-2.0); Eosinophils # (auto) 0 10 ^3/uL (0-0.8); Lymphocytes # (auto) 0.7 10 ^3/uL (0.4-5.4); Mean Corpuscular Hemoglobin 30.4 pg (28.0-32.0); Mean Corpuscular Hgb Conc. 34.2 g/dL (32.0-36.0); Monocytes # (auto) 0.7 10 ^3/uL (0-1.3); White Blood Cell 8.8 10^3/uL (4.4-10.8)
[2022-09-05 05:59] LABS: Eosinophils % (auto) 0.5 % (0.0-7.0); Hematocrit 18.6 % (36.0-46.0); Lymphocytes % (auto) 8.2 % (10.0-50.0); Monocytes % (auto) 7.6 % (0.0-12.0); Neutrophils # (auto) 7.4 10 ^3/uL (1.6-8.6); Neutrophils % (auto) 83.6 % (37.0-80.0); Nucleated Red Blood Cells % 0.1 %; Red Blood Cells 2.09 10^6/uL (4.0-5.20); Red Cell Distribution Width 13.4 % (11.8-14.3)
[2022-09-05 06:07] LABS: Hemoglobin 6.4 g/dL (12.2-16.2)
[2022-09-05 06:19] LABS: BUN/Creatinine Ratio 28.9 (10.0-20.0); Calcium 8.4 mg/dL (8.5-10.1); Potassium 4.1 mmol/L (3.5-5.1)
[2022-09-05] MEDS: PANTOPRAZOLE 40 MG/10 ML VIAL INJ IV SCH (09:58)
[2022-09-05] MEDS: MULTIPLE VITAMIN TAB PO SCH (10:00)
[2022-09-05] MEDS: FERROUS SULFATE 325mg EC TAB PO SCH ×2 (10:14→18:30)
[2022-09-05] MEDS: Ensure HIGH Protein Chocolate 8oz Bottle PO SCH ×2 (10:15→18:31)
[2022-09-05 12:28] VITALS: BP 141/61
[2022-09-05 12:50] VITALS: BP 131/52
[2022-09-05 16:20] VITALS: BP 141/63
[2022-09-05] MEDS: KETOROLAC TROMETH 30 MG/ML 1ML VIAL IV PRN (17:13)
[2022-09-05 22:00] VITALS: BP 156/66
[2022-09-05 22:34] LABS: Hemoglobin 7.2 g/dL (12.2-16.2)
[2022-09-05 22:36] LABS: Hematocrit 21.2 % (36.0-46.0)
[2022-09-06] MEDS: LORazepam 2MG/ML-1ML VIAL IV PRN ×2 (00:44→15:04)
[2022-09-06 04:45] VITALS: BP 157/69
[2022-09-06 05:04] LABS: Basophils # (auto) 0 10 ^3/uL (0-0.2); Basophils % (auto) 0.2 % (0.0-2.0); Eosinophils # (auto) 0.1 10 ^3/uL (0-0.8); Lymphocytes # (auto) 0.7 10 ^3/uL (0.4-5.4); Mean Corpuscular Hemoglobin 30.2 pg (28.0-32.0); Red Cell Distribution Width 13.7 % (11.8-14.3); White Blood Cell 6.2 10^3/uL (4.4-10.8)
[2022-09-06 05:06] LABS: Eosinophils % (auto) 1.6 % (0.0-7.0); Hemoglobin 7.2 g/dL (12.2-16.2); Lymphocytes % (auto) 10.4 % (10.0-50.0); Mean Corpuscular Hgb Conc. 34.4 g/dL (32.0-36.0); Mean Corpuscular Volume 87.7 fL (80.0-100.0); Monocytes # (auto) 0.4 10 ^3/uL (0-1.3); Monocytes % (auto) 7.2 % (0.0-12.0); Neutrophils % (auto) 80.6 % (37.0-80.0)
[2022-09-06 05:21] LABS: Calcium 8.4 mg/dL (8.5-10.1); Potassium 3.9 mmol/L (3.5-5.1)
[2022-09-06 05:28] LABS: Albumin 2.1 g/dL (3.4-5.0); BUN/Creatinine Ratio 37.2 (10.0-20.0); Bilirubin, Total 1.1 mg/dL (0.2-1.0)
[2022-09-06] MEDS: D5W/SOD CHL 0.45% 1,000 ML IV SCH (06:23)
[2022-09-06 08:30] VITALS: BP 127/62
[2022-09-06] MEDS: Ensure HIGH Protein Chocolate 8oz Bottle PO SCH ×2 (08:58→18:00)
[2022-09-06] MEDS: FERROUS SULFATE 325mg EC TAB PO SCH ×2 (09:04→18:00)
[2022-09-06] MEDS: MULTIPLE VITAMIN TAB PO SCH (09:04)
[2022-09-06] MEDS: PANTOPRAZOLE 40 MG/10 ML VIAL INJ IV SCH (09:07)
[2022-09-06] MEDS ORDERED: LACTULOSE 20Gm/30ML SOLN PO ONE (12:15)
[2022-09-06] MEDS ORDERED: DOCUSATE SOD 100 MG CAP PO ONE (12:15)
[2022-09-06 13:00] VITALS: BP_SYST 124; BP_SYST 151; BP_DIAS 52; BP_DIAS 75
[2022-09-06] MEDS: hydrALAZINE HCL 20 MG/ML VL IV PRN (13:27)
[2022-09-06 16:15] VITALS: BP 149/56
[2022-09-06] MEDS: LACTULOSE 20Gm/30ML SOLN PO SCH (21:04)
[2022-09-06 22:00] VITALS: BP 145/63
[2022-09-07 05:00] VITALS: BP 162/64
[2022-09-07 06:50] LABS: Basophils # (auto) 0 10 ^3/uL (0-0.2); Basophils % (auto) 0.2 % (0.0-2.0); Eosinophils # (auto) 0.1 10 ^3/uL (0-0.8); Lymphocytes # (auto) 0.6 10 ^3/uL (0.4-5.4); Mean Corpuscular Hemoglobin 29.9 pg (28.0-32.0)
[2022-09-07 06:54] LABS: Eosinophils % (auto) 1.2 % (0.0-7.0); Hematocrit 23.4 % (36.0-46.0); Lymphocytes % (auto) 8.5 % (10.0-50.0); Monocytes # (auto) 0.5 10 ^3/uL (0-1.3); Monocytes % (auto) 7.6 % (0.0-12.0); Neutrophils # (auto) 5.7 10 ^3/uL (1.6-8.6); Neutrophils % (auto) 82.5 % (37.0-80.0); Red Blood Cells 2.66 10^6/uL (4.0-5.20); Red Cell Distribution Width 13.5 % (11.8-14.3)
[2022-09-07 07:06] LABS: Calcium 8.6 mg/dL (8.5-10.1); Potassium 3.4 mmol/L (3.5-5.1)
[2022-09-07 07:08] LABS: BUN/Creatinine Ratio 35.5 (10.0-20.0)
[2022-09-07] MEDS: Ensure HIGH Protein Chocolate 8oz Bottle PO SCH ×2 (08:44→18:01)
[2022-09-07] MEDS: FERROUS SULFATE 325mg EC TAB PO SCH ×2 (08:44→18:00)
[2022-09-07] MEDS: LACTULOSE 20Gm/30ML SOLN PO SCH ×2 (08:44→22:01)
[2022-09-07] MEDS: PANTOPRAZOLE 40 MG/10 ML VIAL INJ IV SCH (08:44)
[2022-09-07] MEDS: MULTIPLE VITAMIN TAB PO SCH (08:44)
[2022-09-07 09:14] VITALS: BP 163/71
[2022-09-07] MEDS: hydrALAZINE HCL 20 MG/ML VL IV PRN (09:27)
[2022-09-07] MEDS ORDERED: POTASSIUM CHL 20 Meq TABLET PO ONE (12:30)
[2022-09-07 14:22] VITALS: BP 147/79
[2022-09-07 17:27] VITALS: BP 148/75
[2022-09-07 21:32] VITALS: BP 151/70
[2022-09-08 04:51] VITALS: BP 164/78
[2022-09-08] MEDS: LORazepam 2MG/ML-1ML VIAL IV PRN ×2 (08:53→19:03)
[2022-09-08] MEDS: LACTULOSE 20Gm/30ML SOLN PO SCH (10:00)
[2022-09-08] MEDS: PANTOPRAZOLE 40 MG/10 ML VIAL INJ IV SCH (10:21)
[2022-09-08] MEDS: Ensure HIGH Protein Chocolate 8oz Bottle PO SCH ×2 (10:21→18:00)
[2022-09-08] MEDS: FERROUS SULFATE 325mg EC TAB PO SCH ×2 (10:21→18:00)
[2022-09-08] MEDS: MULTIPLE VITAMIN TAB PO SCH (10:21)
[2022-09-08 12:56] VITALS: BP 156/81
[2022-09-08 15:18] VITALS: BP 156/81
== END 2022-09-08 19:57 | DRG 481 ==
LOC: EDBD 21:29 → ER 21:29 → OVERFLOW 09-02 07:29 → CENTRAL 09-02 21:57 → TELE-WESTW 09-02 22:17 → TELE-CENTR 09-03 17:07 → TELE-WESTW 09-06 08:47
PROVIDERS: ADMIT Nurse Practitioner; ATTEND Internal Medicine
PROC: BQ10ZZZ Fluoroscopy of Right Hip (ICD-10-PCS; 2022-09-03)
PROC: 0QS634Z Reposition Right Upper Femur with Internal Fixation Device, Percutaneous Approach (ICD-10-PCS; principal; 2022-09-03 11:48)
PROC: 30233N1 Transfusion of Nonautologous Red Blood Cells into Peripheral Vein, Percutaneous Approach (ICD-10-PCS; 2022-09-05)
DX: S72.141A Displaced intertrochanteric fracture of right femur, initial encounter for closed fracture (principal); E44.0 Moderate protein-calorie malnutrition; N17.9 Acute kidney failure, unspecified; M48.56XA Collapsed vertebra, not elsewhere classified, lumbar region, initial encounter for fracture; G93.40 Encephalopathy, unspecified; I10 Essential (primary) hypertension; D64.9 Anemia, unspecified; E87.6 Hypokalemia; F03.A0 Unspecified dementia, mild, without behavioral disturbance, psychotic disturbance, mood disturbance, and anxiety; M47.812 Spondylosis without myelopathy or radiculopathy, cervical region; Z68.21 Body mass index [BMI] 21.0-21.9, adult
CPT/HCPCS: 36415; 70450; 71045; 71250; 72125; 73502; 73700; 74176; 80048; 80053; 81001; 82607; 82962; 84443; 84484; 85014; 85018; 85025; 85610; 85730; 86850; 86900; 86901; 86920; 87081; 93005; 93306; 96361; 96374; 96375; 97110; 97116; 97163; 97530; C9113; G0378; J0690; J1885; J2250; J2405; J2704; J3490; J7042

== ENCOUNTER 2022-11-05 10:08 | Emergency (ER) | payer MEDICARE, BC ==
[~2022-11-05] VITALS: Ht 167.6 cm; Wt 50.0 kg
[~2022-11-05 10:08] MED LIST changes: -LISI-716 PO; +LISI10TA34 PO
[2022-11-05] MEDS ORDERED: SODIUM CHLORIDE 0.9% 1,000 ML IV ONE (10:30)
[2022-11-05 10:47] LABS: Basophils # (auto) 0 10 ^3/uL (0-0.2); Basophils % (auto) 0.7 % (0.0-2.0); Eosinophils # (auto) 0 10 ^3/uL (0-0.8); Eosinophils % (auto) 0.9 % (0.0-7.0); Hematocrit 35.7 % (36.0-46.0); Hemoglobin 11.2 g/dL (12.2-16.2); Lymphocytes # (auto) 1.1 10 ^3/uL (0.4-5.4); Lymphocytes % (auto) 22.6 % (10.0-50.0); Mean Corpuscular Hemoglobin 28.5 pg (28.0-32.0); Mean Corpuscular Hgb Conc. 31.5 g/dL (32.0-36.0); Mean Corpuscular Volume 90.5 fL (80.0-100.0); Monocytes # (auto) 0.3 10 ^3/uL (0-1.3); Monocytes % (auto) 6.4 % (0.0-12.0); Neutrophils # (auto) 3.4 10 ^3/uL (1.6-8.6); Neutrophils % (auto) 69.4 % (37.0-80.0); Nucleated Red Blood Cells % 0.1 %; Red Blood Cells 3.95 10^6/uL (4.0-5.20); Red Cell Distribution Width 14.9 % (11.8-14.3); White Blood Cell 4.8 10^3/uL (4.4-10.8)
[2022-11-05 11:10] LABS: Calcium 8.4 mg/dL (8.5-10.1); Magnesium 2.4 mg/dL (1.6-2.6); Potassium 4.1 mmol/L (3.5-5.1)
[2022-11-05 11:12] LABS: BUN/Creatinine Ratio 29.5 (10.0-20.0); Bilirubin, Total 0.4 mg/dL (0.2-1.0); Total Protein 5.8 g/dL (6.4-8.2)
[2022-11-05 13:00] VITALS: BP 186/81
== END 2022-11-05 13:45 | disposition home or self-care (01) ==
LOC: ER 10:08
DX: S40.012A Contusion of left shoulder, initial encounter (principal); F03.90 Unspecified dementia, unspecified severity, without behavioral disturbance, psychotic disturbance, mood disturbance, and anxiety; Z98.890 Other specified postprocedural states; Z79.899 Other long term (current) drug therapy; W01.198A Fall on same level from slipping, tripping and stumbling with subsequent striking against other object, initial encounter; Y93.01 Activity, walking, marching and hiking; Y92.89 Other specified places as the place of occurrence of the external cause; Y99.8 Other external cause status
CPT/HCPCS: 36415; 73030; 73610; 80053; 83735; 84484; 85025; 93005; 96360; 96361; 99285; J7030